=== PATIENT | female | born 1975 | race Caucasian/White ===

== ENCOUNTER → 2016-12-01 | Outpatient (CLI) | payer BC | LOC: FIMAGING 09:32 | PROVIDERS: ATTEND Internal Medicine | DX: Z12.31 Encounter for screening mammogram for malignant neoplasm of breast (principal) | CPT/HCPCS: G0202 ==

== ENCOUNTER → 2017-12-06 | Outpatient (CLI) | payer BC | LOC: FIMAGING 13:19 | PROVIDERS: ATTEND Internal Medicine | DX: Z12.31 Encounter for screening mammogram for malignant neoplasm of breast (principal) ==

== ENCOUNTER 2018-02-17 10:15 | Emergency (ER) | payer BC ==
[2018-02-17] MEDS ORDERED: DIAZEPAM 5 MG/ML 1 ML SYR IVP ONE (10:34)
[2018-02-17] MEDS ORDERED: LIDOCAINE 4%/MENTHOL 1% PATCH TD ONE (10:34)
[2018-02-17 11:58] VITALS: BP 116/53
--- NOTE | 2018-02-17 12:00 | EDPHY ---
H & P Time Seen by Provider: 02/17/18 10:19 HPI/ROS: CHIEF COMPLAINT: Severe back spasms HISTORY OF PRESENT ILLNESS: Patient slept on a mattress about a week and half ago while traveling, her back has been hurting her since then. She did go for a walk today between 7 and 745 but then her back seized up and she was lying on the ground at home and she was really having difficulty even standing or walking because of the pain. It was severe and located in her lower thoracic and upper lumbar area. Did not radiate. Not associated with weakness or numbness in extremities or incontinence. No fever or chills. No recent injury or trauma. She got 100 mcg of IV fentanyl by paramedics and feels better now. She did take a 5 mg oral diazepam at home and that helped a little bit. She has been taking 400 mg oral ibuprofen on and intermittent basis over the past couple of days. REVIEW OF SYSTEMS: Eye: no change in vision ENT: no sore throat Cardiac: no chest pain or syncope Pulmonary: no cough or SOB Abdomen: no vomiting, diarrhea, abdominal pain Musculoskeletal: HPI Skin: no rash Neuro: no headache Constitutional: no fever : no urinary symptoms A comprehensive 10 point review of systems is otherwise negative aside from elements mentioned in the history of present illness. PAST MEDICAL HISTORY: Negative Social history: Primary care [facility] General Appearance: Alert and conversant, cooperative. Eyes: No scleral icterus. ENT, Mouth: Normal mucous membranes. Respiratory: Normal respiratory effort, breath sounds equal, lungs are clear to auscultation. Cardiovascular: Regular rate and rhythm. Gastrointestinal: Abdomen is soft and non tender. No pulsatile mass. Neurological: Alert, face symmetric, normal motor and sensory in extremities. Toes downgoing, no clonus, patellar reflexes 1+ bilateral and symmetric, straight leg raising negative bilaterally. Skin: Warm and dry, no rashes. Musculoskeletal: Patient has some paraspinal muscle tenderness in the area of pain. No midline spinal tenderness or deformity. Psychiatric: Not agitated. Emergency Department course/MDM: After arrival patient received IV diazepam and lidocaine patch. She feels like the main problem is muscle spasm which I think is likely. I think it is unlikely that she has spinal cord injury, fracture, pyelonephritis , epidural abscess. 1158: Re-evaluated, ambulatory, feels stable for discharge which I think is reasonable. She is requesting muscle relaxant, no narcotics, will follow up tomorrow with her physical therapist. We both agree that imaging is not clinically indicated at this time. Smoking Status: Never smoked Constitutional: Initial Vital Signs Temperature (C) 36.5 C 02/17/18 10:19 Heart Rate 54 L 02/17/18 10:19 Respiratory Rate 18 02/17/18 10:19 Blood Pressure 98/75 L 02/17/18 10:19 O2 Sat (%) 100 02/17/18 10:19 O2 Delivery Mode Room Air Allergies/Adverse Reactions: No Known Allergies Allergy (Verified 08/06/12 17:23) Home Medications: Medication Instructions Recorded Vit27&Calcium/Iron/FA 1 each PO DAILY 08/06/12 [ Rx 1 Tablet (RX)] Diazepam 5 mg PO Q8 PRN #7 tablet 02/17/18 Lidocaine 5% [Lidoderm 5% Patch] 1 ea TD DAILY #5 patch 02/17/18 Medical Decision Making - Data Points Medications Given: Discontinued Medications Diazepam (Valium) 5 mg IVP EDNOW ONE Stop: 02/17/18 10:35 Last Admin: 02/17/18 10:45 Dose: 5 mg Miscellaneous Medication (Icy Hot Lidocaine/Menthol 4%/1% Patch) 1 patch TD EDNOW ONE Stop: 02/17/18 10:35 Last Admin: 02/17/18 10:37 Dose: 1 patch Departure - Departure Disposition: Home, Routine, Self-Care Clinical Impression: Spasm of back muscles Condition: Good Instructions: Acute Low Back Pain (ED) Additional Instructions: Oral ibuprofen 600 mg every 6-8 hr for the next 3 days. Lidocaine patches prescribed. Oral diazepam as needed for rescue for severe pain. Referrals: Maty Pantoja MD [Primary Care Provider] - As per Instructions Prescriptions: Diazepam 5 mg PO Q8 PRN #7 tablet PRN Reason: muscle spasm Lidocaine 5% [Lidoderm 5% Patch] 1 ea TD DAILY #5 patch
[2018-02-17] MEDS ORDERED: PATCH REMOVAL 1 EA PATCH TD SCH (21:00)
== END 2018-02-17 12:12 | disposition home or self-care (01) ==
LOC: EDUNIT#
DX: M62.830 Muscle spasm of back (principal)
CPT/HCPCS: 96374; J3360